=== PATIENT | male | born 2000 | race Caucasian/White ===

== ENCOUNTER 2024-01-18 15:19 | Emergency (ER) | payer MEDICAID ==
[~2024-01-18] VITALS: Ht 165.1 cm; Wt 61.0 kg
[2024-01-18 15:22] VITALS: TEMP 98.6; O2SAT 99
[2024-01-18] MEDS: HALOPERIDOL LACTATE 5MG/ML VIAL IM ONE (15:59)
[2024-01-18] MEDS: KETOROLAC 30MG/ML VIAL IV ONE (16:00)
[2024-01-18] MEDS: SODIUM CHLORIDE 0.9% 1,000 ML IV ONE (16:00)
[2024-01-18] MEDS: ONDANSETRON HCL 4MG/2ML INJ IV ONE (16:00)
[2024-01-18] MEDS: FAMOTIDINE 20MG/2ML VIAL IV ONE (16:00)
[2024-01-18 16:02] LABS: HEMATOCRIT. 44.6 % (42.0-52.0); HEMOGLOBIN. 15.5 g/dL (14.0-18.0); MEAN CORPUSCULAR HEMOGLOBIN 31.4 pg (28.0-32.0); MEAN CORPUSCULAR HGB CONC 34.8 g/dL (31.0-37.0); MEAN CORPUSCULAR VOLUME 90.2 fL (80.0-94.0); MEAN PLATELET VOLUME 10.1 fl (7.4-10.4); PLATELET 254 x1000/uL (130-400); RED BLOOD CELL COUNT 4.95 mill/uL (4.7-6.1); RED CELL DISTRIBUTION WIDTH 13.6 % (11.6-14.6); WHITE BLOOD COUNT 21.5 x1000/uL (4.5-11.0)
[2024-01-18 16:04] LABS: DIFFERENTIAL COMMENT 1
[2024-01-18 16:15] LABS: CHLORIDE 102 mEq/L (98-107); POTASSIUM 3.2 mEq/L (3.5-5.1); SODIUM 137 mEq/L (136-145)
[2024-01-18 16:16] LABS: CALCIUM 10.8 mg/dL (8.7-10.4); CARBON DIOXIDE 20 mEq/L (21-32)
[2024-01-18 16:21] LABS: GLUCOSE 155 mg/dL (70-105); UREA NITROGEN BLOOD 15 mg/dL (9-23)
[2024-01-18 16:33] LABS: ETHANOL BLOOD < 10 mg/dL (<10)
[2024-01-18 16:45] VITALS: BP 106/55; PULSE 86; RESP 19
[2024-01-18] MEDS: POTASSIUM CHLORIDE 20MEQ/PACKET PO NR (17:44)
[2024-01-18] MEDS ORDERED: FAMO-135 MT (17:45)
[2024-01-18 18:20] LABS: PLATELET ESTIMATE NORMAL
== END 2024-01-18 17:49 | disposition home or self-care (01) ==
LOC: ER 15:19
DX: R10.13 Epigastric pain (principal); R11.2 Nausea with vomiting, unspecified; F41.9 Anxiety disorder, unspecified
CPT/HCPCS: 80048; 80320; 83690; 85025; 36415; 96361; 96372; 96374; 96375; 99284; J3490; J1630; J1885; J2405; J7030; Z7610 ×2; G0480